=== PATIENT | male | born 1995 | race Caucasian/White ===

== ENCOUNTER 2018-02-07 17:07 | Emergency (ER) | payer OTHER ==
[2018-02-07] MEDS ORDERED: BOOSTRIX IM ONE (18:05)
[2018-02-07] MEDS ORDERED: NORCO 10/325 PO ONE (18:05)
--- NOTE | 2018-02-07 18:08 | Emergency Department Report ---
Stated Complaint: RIGHT HAND FINGER LACERATION Time Seen by Provider: 02/07/18 18:05 - HPI History of Present Illness: 23-year-old male past medical history none presents with complaint of injury to right distal index finger. 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 Large distal visible amputation of finger. No injury to any other body part. Visibly losing blood. Possible exposed bone on initial inspection. - ROS Review of Systems: Patient has been in usual state of health otherwise - Exam Vital Signs: Vital Signs 02/07/18 17:57 Temperature 98.3 F Pulse Rate 104 H Respiratory 16 Rate Blood Pressure 121/77 O2 Sat by Pulse 95 Oximetry Physical Exam: Visible amputation distal finger right hand, severely macerated tissue MSE screening note: Focused history and physical exam performed. Due to findings the following was ordered: Screening Assessment/Plan/Differential Dx: Crush/amputation injury distal finger right hand 1- This initial assessment/diagnostic orders/clinical plan/ treatment(s) is/are subject to change based on pt's health status, clinical progression and re- assessment by fellow clinical providers in the ED. Further treatment and workup at subsequent clinical provers discretion. Patient/guardians urged not to elope from ED as their condition may be serious if not clinically assessed and managed. 2-x-rays, tetanus update, pain control ED Disposition for MSE Condition: Stable
--- NOTE | 2018-02-07 18:42 | XRay Report ---
FINAL REPORT PROCEDURE: Right finger series TECHNIQUE: RIGHT index finger radiographs, including AP, lateral, and oblique views. HISTORY: right index finger crush injury COMPARISON: No prior studies are available for comparison. FINDINGS: There is a laceration seen involving the distal soft tissues of the index finger. There appears to be partial amputation of the soft tissues distally. There is an oblique mildly displaced fracture of the distal phalanx of the index finger. There is a 1.3 millimeter fragment of bone seen along the radial aspect of the fracture site. There is no dislocation. IMPRESSION: Oblique mildly displaced fracture distal phalanx of the index finger. There is a laceration and partial soft tissue amputation of the distal soft tissues.. No radiopaque foreign bodies are identified.
[2018-02-07] MEDS ORDERED: ZOFRAN IV ONE (20:16)
[2018-02-07] MEDS ORDERED: XYLOCAINE 1% 20 mL INFILTRATI ONE (20:16)
[2018-02-07] MEDS ORDERED: NACL 0.9% IR ONE (20:16)
[2018-02-07] MEDS ORDERED: TRIPLE ANTIBIOTIC TP ONE (20:16)
[2018-02-07] MEDS ORDERED: MORPHINE IV ONE (20:16)
--- NOTE | 2018-02-07 20:22 | Emergency Department Report ---
Upper Extremity - HPI Stated Complaint: RIGHT HAND FINGER LACERATION Time Seen by Provider: 02/07/18 18:05 Upper Extremity: Right Shoulder, Right Hand, Right Index Finger Mechanism: Crush Severity: severe Symptoms: Yes Pain with Movement, Yes Deformity, Yes Laceration or Abrasion, No Limited Range of Movement, No Numbness, No Weakness Other History: Healthy 23 yo male who crushed the distal portion of right index finger. He crushed the finger on the truck ramp while unloading objects. He is left handed.Wor ED Review of Systems ROS: Stated complaint: RIGHT HAND FINGER LACERATION Other details as noted in HPI Constitutional: denies: fever, malaise Cardiovascular: denies: chest pain Gastrointestinal: denies: abdominal pain, nausea Neurological: denies: headache, weakness ED Past Medical Hx - Past Medical History Previous Medical History?: Yes Hx Asthma: Yes Additional medical history: tour ett's - Surgical History Past Surgical History?: Yes Additional Surgical History: right wrist surgery as a teenager - Social History Smoking Status: Never Smoker Substance Use Type: Alcohol (occasionally) Other Social History: works in IT Upper Extremity Exam - Exam General: Vital signs noted. No distress. Alert and acting appropriately. Large soft tissue defect at the distal right index. Partial amputation with complete absence of nail. Bone is partially exposed. Head and Torso: No HEENT Abnormality, No Neck Tenderness, No Chest/Lungs Abnormality, No Abdominal Tenderness, No Back Tenderness Shoulder Exam: Yes Normal Range of Motion in Shoulder, No Shoulder Tenderness, No Clavicle Tenderness, No Shoulder Deformity Hand: Yes Hand Deformity Hand L/R Front: 1 - right index finger: distal phalanx crush injury laceration highly deformed soft tissue with bone exposed, patient is able to flex at DIP and PIP and MCP intact sensation to the distal crease at DIP ED Course Vital Signs 02/07/18 17:57 Temperature 98.3 F Pulse Rate 104 H Respiratory 16 Rate Blood Pressure 121/77 O2 Sat by Pulse 95 Oximetry - Laceration /Wound Repair Right Hand Wound Location: upper extremity Wound's Depth, Shape: irregular, nail-avulsed, contused tissue Wound Explored: no foreign body removed Irrigated w/ Saline (ccs): 500 Betadine Prep?: Yes Anesthesia: 1% Lidocaine Volume Anesthetic (ccs): 5 (digit block) Wound Debrided: moderate Wound Repaired With: sutures Suture Size/Type: 4:0, proline Layer Closure?: No Sterile Dressing Applied?: Yes (vaseline gauze) ED Medical Decision Making - Radiology Data Radiology results: report reviewed, image reviewed - Medical Decision Making Jaiden is left hand dominant healthy male with crush injury to distal phalanx of right index finger. Minimally displaced open fracture of distal phalanx. Irrigated well. IV ancef provided. TDAP provided. It was difficult to approximate crushed soft tissue. I have contacted [facility] to arrange for follow up. Dr. Michael [facility] with [facility] will see patient in clinic. Family members are close friends with Dr. Alberto Blanco with [facility]. Jaiden's mother is also former patient of Dr. Blanco. I spoke with Dr. Blanco. Dr. Blanco will gladly take care of Jaiden in clinic. Given extensive wound care instructions. Rx: keflex/norco Critical care attestation.: If time is entered above; I have spent that time in minutes in the direct care of this critically ill patient, excluding procedure time. ED Disposition Clinical Impression: Finger amputation, traumatic, Open fracture of phalanx of digit of hand, Crush accident Disposition: TO HOME OR SELFCARE Is pt being admited?: No Does the pt Need Aspirin: No Condition: Stable Instructions: Finger Fracture (ED) Additional Instructions: You have an open distal phalanx fracture with large amount of soft tissue missing. Bone is intact. Nail has been lost. You will need surgical revision by Dr. Blanco. Time of Disposition: 21:40
[2018-02-07] MEDS ORDERED: ceFAZolin 2 GM in NACL 0.9% 100 ML IV ONE (21:31)
[2018-02-07] MEDS ORDERED: NORCO 5/325 ONE (21:50)
[2018-02-07] MEDS ORDERED: NACL 0.9% 100 ML ONE (21:58)
[2018-02-07] MEDS ORDERED: ceFAZolin 2 GM in NACL 0.9% 20 ML IV ONE (22:00)
[2018-02-07] MEDS ORDERED: NORCO 5/325 PO ONE ×2 (22:08→22:48)
[2018-02-07] MEDS ORDERED: NACL 0.9% IV ONE (22:10)
[2018-02-07 23:05] VITALS: BP 106/67
== END 2018-02-07 23:09 | disposition home or self-care (01) ==
LOC: ED 17:07
DX: J45.909 Unspecified asthma, uncomplicated (principal); S62.630B Displaced fracture of distal phalanx of right index finger, initial encounter for open fracture; W24.1XXA Contact with transmission devices, not elsewhere classified, initial encounter; Y93.89 Activity, other specified; Y99.8 Other external cause status; Y92.69 Other specified industrial and construction area as the place of occurrence of the external cause
CPT/HCPCS: 12001; 73140; 90471; 90715; 96365; 96375; 99283; J0690; J2270; J2405; A6250